=== PATIENT | male | born 1980 | race Caucasian/White ===

== ENCOUNTER → 2018-03-16 | Outpatient (CLI) | payer BC ==
[~2018-03-16] MED LIST: OMEP10SU PO; RANI-366 PO
== END ==
LOC: LAB 10:21
PROVIDERS: ATTEND Urology
DX: Z00.00 Encounter for general adult medical examination without abnormal findings (principal); Z80.42 Family history of malignant neoplasm of prostate
CPT/HCPCS: 36415; 84153

== ENCOUNTER → 2018-03-25 | Outpatient (CLI) | payer BC ==
[~2018-03-25] MED LIST changes: +IOPAMIDOL 76% 75 ML INFUS BTL 75 ML ONE
--- NOTE | 2018-03-25 10:13 | RADIOLOGY IMAGING REPORT ---
FACILITY: [facility] [place] PATIENT NAME: Que Abrams : 1980 MR: [id number] V: [id number] EXAM DATE: ORDERING PHYSICIAN: ROLAN SOUZA TECHNOLOGIST: Location: [facility] Patient: Que Abrams : 1980 Visit/Account:[id number] Date of Sevice: 03/25/2018 ABDOMEN/PELVIS W/WO CONTRAST HISTORY: Pelvic pain, groin pain x2 months TECHNIQUE: Axial images acquired through the abdomen/pelvis both with and without IV contrast.. Yolanda nal and sagittal reformatting also performed. Dose Lowering Technique One of the following dose optimization techniques was utilized in the performance of this exam: Autom ated exposure control; adjustment of the mA and/or kV according to the patient's size; or use of an i terative reconstruction technique. Specific details can be referenced in the facility's radiology C T exam operational policy. CONTRAST: 75 mL Isovue-[id number] COMPARISON: May 15, 2011 FINDINGS: Visualized lung bases: Negative. Hepatobiliary: Negative. Spleen: Spleen is borderline enlarged measuring 13.2 cm in length slightly increased when compared t he prior study Adrenals: Negative. Pancreas: Negative. Kidneys ureters and bladder: The previously noted 1.4 cm medial upper pole left renal cyst now appear s smaller measuring 7 mm in diameter. There is a new tiny hypodensity upper pole of the left kidney laterally measuring 5 mm in diameter is too small to characterize . Genitalia: There are numerous serpiginous vessels seen in the left side of the scrotal sac superiorl y. This could possibly represent a varicocele GI: There are postsurgical changes from an appendectomy Vessels/spaces/nodes: Negative. Bones/soft tissues: There is an umbilical hernia containing fat. The hernia opening is 1.6 cm Additional findings: None pertinent. IMPRESSION: Serpiginous vessels seen in the superior left-sided scrotal sac possibly reflecting a varicocele alth ough this would be better evaluated with a scrotal ultrasound Borderline splenomegaly slightly increased when compared the prior study Previously noted 1.4 cm medial upper pole left renal cyst now appears smaller measuring 7 mm. There is a new tiny hypodensity lateral upper pole of the left kidney which is too small to characterize Umbilical hernia containing fat Report Dictated By: Hyun Ornelas MD at 03/25/2018 9:53 AM Report E-Signed By: Hyun Ornelas MD at 03/25/2018 10:08 AM RENETTAN:MAURICIO
== END ==
LOC: CT 02:40
PROVIDERS: ATTEND Urology
DX: R16.1 Splenomegaly, not elsewhere classified (principal); N28.1 Cyst of kidney, acquired; K42.9 Umbilical hernia without obstruction or gangrene
CPT/HCPCS: 74178; Q9967